=== PATIENT | male | born 1935 | race Caucasian/White ===

== ENCOUNTER → 2018-07-16 | Outpatient (CLI) | payer BC ==
[~2018-07-16] MED LIST: ADVIL; PRIM50; ROSU5
== END | disposition home or self-care (01) ==
LOC: LAB SHORT 12:27 → PLD 12:27
DX: D48.5 Neoplasm of uncertain behavior of skin (principal); D22.71 Melanocytic nevi of right lower limb, including hip
CPT/HCPCS: 88305

== ENCOUNTER → 2018-08-04 | Outpatient (CLI) | payer BC | END | disposition home or self-care (01) | LOC: LAB SHORT 15:49 → PLD 15:49 | DX: C44.319 Basal cell carcinoma of skin of other parts of face (principal) | CPT/HCPCS: 88305 ==

== ENCOUNTER 2021-07-17 09:23 | Day surgery (SDC) | payer BC ==
[~2021-07-17] VITALS: Ht 170.2 cm; Wt 64.6 kg
[2021-07-17] MEDS ORDERED: Prinivil10 MG (09:30)
[2021-07-17] MEDS ORDERED: ASCO500 (09:30)
[2021-07-17] MEDS ORDERED: ATOR10 (09:38)
--- NOTE | 2021-07-17 12:16 | NUR ---
07/17/21 1216 Naomi Thompson RN VISIBLY WATCHING DRIVE AWAY WITH IN THE PASSENGERS SEAT.
== END 2021-07-17 12:02 | disposition home or self-care (01) ==
LOC: ORSCSDS 09:23
PROVIDERS: Internal Medicine Gastroenterology
PROC: 0DBN8ZX Excision of Sigmoid Colon, Via Natural or Artificial Opening Endoscopic, Diagnostic (ICD-10-PCS; principal; 2021-07-17 10:45)
DX: K62.5 Hemorrhage of anus and rectum (principal); D12.5 Benign neoplasm of sigmoid colon; Z86.010 Personal history of colon polyps; K57.30 Diverticulosis of large intestine without perforation or abscess without bleeding; Z87.891 Personal history of nicotine dependence; Z79.899 Other long term (current) drug therapy
CPT/HCPCS: 88305; J2704; J7120

== ENCOUNTER 2021-08-28 08:14 | Day surgery (SDC) | payer BC ==
[~2021-08-28] VITALS: Ht 172.7 cm; Wt 67.3 kg
[~2021-08-28 08:14] MED LIST changes: +ASCO500 PO; +ATOR10; +PRIM250 PO; -PRIM50; +Prinivil10 MG PO
--- NOTE | 2021-08-28 09:09 | NUR ---
Ambulatory in Day Surgery Patient confirms NPO status and agrees with scheduled surgery. Patient States Post-Procedure ride home has been arranged.
--- NOTE | 2021-08-28 11:01 | NUR ---
Discharge instructions reviewed with patient. Patient verbalizes understanding. Copy given to patient to take home. Dressing to procedure site clean, dry, intact with no visible drainage, swelling, erythema or bruising noted. Patient States Post-Procedure ride home has been arranged. Discharged via wheelchair to private car for ride home.
--- NOTE | 2021-08-28 12:12 | NUR ---
NOTIFIED OF BP 200/100 STATES BP IS BACK TO BASELINE AND IS OK WITH DISCHARGE ORDERS FOR PT TO TAKE HOME BP MEDS WHEN HE GETS HOME. PT VERBALIZES UNDERSTANDING
== END 2021-08-28 23:44 | disposition home or self-care (01) ==
LOC: ORSCMMR 08:14 → ORD 11:00 → ORSCMMR 11:00
PROVIDERS: Surgery
PROC: 0YU50JZ Supplement Right Inguinal Region with Synthetic Substitute, Open Approach (ICD-10-PCS; principal; 2021-08-28 09:30)
DX: K40.90 Unilateral inguinal hernia, without obstruction or gangrene, not specified as recurrent (principal); I10 Essential (primary) hypertension; N18.30 Chronic kidney disease, stage 3 unspecified; Z79.899 Other long term (current) drug therapy
CPT/HCPCS: C1781; J0360; J0690; J1100; J2405; J2704; J3010; J7120

== ENCOUNTER 2021-09-04 18:16 | Inpatient (IN) | payer BC ==
[~2021-09-04] VITALS: Ht 175.3 cm; Wt 66.2 kg
[2021-09-04 19:13] LABS: BASOPHILS ABSOLUTE AUTO 0.01 K/mm3 (0.00-0.23); BASOPHILS PERCENT AUTO 0 % (0-2); EOSINOPHILS ABSOLUTE AUTO 0.04 K/mm3 (0.00-0.68); EOSINOPHILS PERCENT AUTO 0 % (0-6); Hematocrit 40.3 % (37.0-53.0); Hemoglobin 13.9 g/dL (13.5-17.5); IMMATURE GRAN ABSOLUTE AUTO 0.09 K/mm3 (0.00-0.10); IMMATURE GRAN PERCENT AUTO 1 % (0-1); LYMPHOCYTES ABSOLUTE AUTO 1.33 K/mm3 (0.84-5.20); LYMPHOCYTES PERCENT AUTO 11 % (21-46); MONOCYTES ABSOLUTE AUTO 1.13 K/mm3 (0.16-1.47); MONOCYTES PERCENT AUTO 9 % (4-13); Mean Corpuscular HGB 31.8 pg (26.0-34.0); Mean Corpuscular HGB Conc 34.5 g/dL (31.5-36.5); Mean Corpuscular Volume 92 fL (80-100); Mean Platelet Volume 12.2 fL (9.1-12.4); NEUTROPHILS ABSOLUTE AUTO 9.75 K/mm3 (1.96-9.15); NEUTROPHILS PERCENT AUTO 79 % (41-73); Platelet Count 143 K/mm3 (150-400); RDW Coefficient Variation 13.3 % (11.7-14.2); RDW Standard Deviation 45.8 fL (35.1-46.3); Red Blood Cell Count 4.37 M/mm3 (4.30-5.90); White Blood Cell Count 12.35 K/mm3 (4.00-11.30)
[2021-09-04 20:10] LABS: Albumin, Blood 2.7 g/dL (3.4-5.0); Albumin/Globulin Ratio 0.7 (0.8-1.8); Bilirubin, Total 0.4 mg/dL (0.1-1.0); Bun/Creatinine Ratio 13.8 (12.0-20.0); Calcium, Blood 9.3 mg/dL (8.5-10.1); Creatinine, Blood 13.5 mg/dL (0.60-1.20); Globulin, Blood 4.1 g/dL (2.2-4.0); Potassium, Blood 5.1 mmol/L (3.5-5.5); Total Protein, Blood 6.8 g/dL (6.4-8.2)
[2021-09-05 05:50] LABS: BASOPHILS ABSOLUTE AUTO 0.01 K/mm3 (0.00-0.23); BASOPHILS PERCENT AUTO 0 % (0-2); EOSINOPHILS ABSOLUTE AUTO 0.05 K/mm3 (0.00-0.68); EOSINOPHILS PERCENT AUTO 1 % (0-6); Hematocrit 40.5 % (37.0-53.0); Hemoglobin 13.9 g/dL (13.5-17.5); IMMATURE GRAN ABSOLUTE AUTO 0.06 K/mm3 (0.00-0.10); IMMATURE GRAN PERCENT AUTO 1 % (0-1); LYMPHOCYTES PERCENT AUTO 12 % (21-46); MONOCYTES ABSOLUTE AUTO 0.92 K/mm3 (0.16-1.47); MONOCYTES PERCENT AUTO 10 % (4-13); Mean Corpuscular HGB 31.5 pg (26.0-34.0); Mean Corpuscular HGB Conc 34.3 g/dL (31.5-36.5); Mean Corpuscular Volume 92 fL (80-100); Mean Platelet Volume 12.1 fL (9.1-12.4); NEUTROPHILS ABSOLUTE AUTO 7.43 K/mm3 (1.96-9.15); NEUTROPHILS PERCENT AUTO 78 % (41-73); Platelet Count 134 K/mm3 (150-400); RDW Coefficient Variation 13.4 % (11.7-14.2); RDW Standard Deviation 45.2 fL (35.1-46.3); Red Blood Cell Count 4.41 M/mm3 (4.30-5.90); White Blood Cell Count 9.57 K/mm3 (4.00-11.30)
--- NOTE | 2021-09-05 05:53 | NUR ---
SHIFT SUMMARY 88 YR M ADMITTED ON 09/04/21FOR ACUTE RENAL FAILURE. PT HAD HERNIA REPAIR SURGERY 8 DAYS AGO AND STATES THAT HE HAS NOT BEEN ABLE TO URINATE SINCE THEN.FRIEDMAN PLACED IN E.D. AND 4100 ML HAVE BEEN COLLECTED FROM THE CATHETER BAG THIS SHIFT. COLOR OF THE URINE IS CRANBERRY RED AND THIS MAY BE DUE TO TRAUMA DURING CATHETER INSERTION. IT SHOULD BE CLOSELY MONITERED. PT IS PLEASANT AND QUIET AND IS A&O.
[2021-09-05 06:44] LABS: Albumin, Blood 2.6 g/dL (3.4-5.0); Albumin/Globulin Ratio 0.7 (0.8-1.8); Bilirubin, Total 0.5 mg/dL (0.1-1.0); Bun/Creatinine Ratio 17.6 (12.0-20.0); Calcium, Blood 9.2 mg/dL (8.5-10.1); Creatinine, Blood 9.04 mg/dL (0.60-1.20); Globulin, Blood 3.8 g/dL (2.2-4.0); Potassium, Blood 4.3 mmol/L (3.5-5.5); Total Protein, Blood 6.4 g/dL (6.4-8.2)
--- NOTE | 2021-09-05 10:08 | NUR ---
Pt. was awake and alert, and lying in bed. Pt. welcomed my visit. 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 Pt. reflected on the events leading to his hospitalization. Normalized Pt. experience. Pt. was unsettled by the inablity to communicate with his son, who had come to care for pts. . Provided a calming presence. Prayed with Pt. Pt. verbalized desire for me to contact his home. I contacted home, and updated pts. son. Son verbalized gratitude for the update, and shared he (son) has a scheduled call with the physician later today.
--- NOTE | 2021-09-05 15:09 | NUR ---
Initial Assessment with [facility] Community Global Marketing Coordinator 1. Who did you speak with? Spoke with patient 2. What is the patient's prior level of functions? Patient lives independently at his residence with Levi. Levi has dementia. Patient has two sons how both live in [facility]. Sons help when needed. Patient is able to complete ADL's with little assistance. His helps when she is able, but sometimes forgets the task. The residence is two story. Patient able to navigate the stairs without concern. 3. Is the patient and/or family able to provide transportation to and from doctor's appointments and hand picker prescriptions? 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 Does patient still drive? Yes 5. POA/PCP/NOK: NOK: [facility] [phone]/PCP Dr. Cedric Cervantes MD 6. ANTICIPATED DISCHARGE NEEDS/GOALS: TBD -Home Health: No preference -Patient self manages medications -[facility] -Patient owns several canes and has a shower chair 7. List barriers to discharge: No barriers on this date 8. Discharge Plan: TBD and follow up with [place] PCP Dr. Cervantes 9. PCP Follow up appointment: Will be scheduled within seven calendar days of discharge. 10. OTHER COMMENTS: Patient served in the [employer], but has not applied for service connected disability. Encouraged patient to apply or VA/ services.
--- NOTE | 2021-09-05 18:34 | NUR ---
Followed up with pt. while he was eating dinner. Gave an update after facilitating his requested call to his son. Pt. verbalized his gratitude and has since been in contact with son who is caring for pts. spouse. Prayed with pt.
--- NOTE | 2021-09-05 19:35 | NUR ---
PT IS A/OX4, PLEASANT AND COOPERATIVE, THE PT APPEARS TO BE BREATHING EASILY AT THIS TIME. THE PT DENIED ANY PAIN , SOB N/V T/O THE DAY. PT HAS ESENTIAL TREMORS AND HAS DIFFICULTY WITH MEALS BECAUSE OF THE UNCONTROLED SHAKING. PT WAS RESTARTED ON HIS PRIMIDONE. CALL LIGHT IN REACH. NO OTHER CHANGES NOTICED THIS SHIFT
--- NOTE | 2021-09-06 06:02 | NUR ---
SHIFT SUMMARY PT IS AN 85 Y/O MALE, ADMITTED FOR ACUTE RENAL FAILURE. HE IS A&O X 4, 1PA TO THE BS. FRIEDMAN IN PLACE, PATENT AND DRAINING YELLOW URINE. NO C/O ACUTE PAIN, NAUSEA OR SOB. VITAL SIGNS STABLE. TELE SHOWED NSR IN THE 90S. NO ACUTE CHANGES IN PT CONDITION NOTED DURING THE NIGHT. WILL CONTINUE TO MONITOR AND TREAT PER EMAR UNTIL HAND OFF TO DAY SHIFT RN.
[2021-09-06 08:52] LABS: BASOPHILS ABSOLUTE AUTO 0.01 K/mm3 (0.00-0.23); BASOPHILS PERCENT AUTO 0 % (0-2); EOSINOPHILS ABSOLUTE AUTO 0.13 K/mm3 (0.00-0.68); EOSINOPHILS PERCENT AUTO 2 % (0-6); Hematocrit 41.8 % (37.0-53.0); IMMATURE GRAN ABSOLUTE AUTO 0.04 K/mm3 (0.00-0.10); IMMATURE GRAN PERCENT AUTO 1 % (0-1); LYMPHOCYTES ABSOLUTE AUTO 2.07 K/mm3 (0.84-5.20); LYMPHOCYTES PERCENT AUTO 28 % (21-46); MONOCYTES ABSOLUTE AUTO 0.61 K/mm3 (0.16-1.47); MONOCYTES PERCENT AUTO 8 % (4-13); Mean Corpuscular HGB 31.7 pg (26.0-34.0); Mean Corpuscular HGB Conc 33.5 g/dL (31.5-36.5); Mean Corpuscular Volume 95 fL (80-100); Mean Platelet Volume 11.7 fL (9.1-12.4); NEUTROPHILS ABSOLUTE AUTO 4.61 K/mm3 (1.96-9.15); NEUTROPHILS PERCENT AUTO 62 % (41-73); Platelet Count 171 K/mm3 (150-400); RDW Coefficient Variation 13.2 % (11.7-14.2); RDW Standard Deviation 46.5 fL (35.1-46.3); Red Blood Cell Count 4.41 M/mm3 (4.30-5.90); White Blood Cell Count 7.47 K/mm3 (4.00-11.30)
[2021-09-06 09:08] LABS: Bun/Creatinine Ratio 34.9 (12.0-20.0); Creatinine, Blood 2.15 mg/dL (0.60-1.20); Potassium, Blood 4.5 mmol/L (3.5-5.5)
--- NOTE | 2021-09-06 10:33 | NUR ---
Pt. was sitting up and alert. Pt. welcomed my visit. Re-established rapport. Pt. was unsettled about the need to have a bowel movement. Listened Empathetically. Engaged in Life Review. While in conversation, Pt. displayed evidence of BM urgency, and verbally requested I find a nurse to assist him. Contacted nurse, and excused myself while Pt. was assisted.
--- NOTE | 2021-09-06 17:00 | NUR ---
PT IS A/OX4, PLEASANT AND COOPERATIVE, THE PT IS UP WITH MINIMAL ASSIST TO THE CHAIR AND THE BATHROOM, THE PT DENIED ANY PAIN SO FAR THIS SHIFT. PT APPEARS TO BE BREATHING EASILY ON RA AT THIS TIME. PT HAS A FRIEDMAN CATHETER IN PLACE, BLADDER TRAINING WAS STARTED TO MAKE READY FOR REMOVAL. PT WAS UP IN THE CHAIR TODAY FOR BREAKFAST. THE PT AMBULATED INTO THE BATHROOM TODAY WITH MINIMAL ASSIST AND HAD A BM. PT WAS ENCOURAGED TO DRINK, PLEANTY OF FLUIDS
--- NOTE | 2021-09-07 04:48 | NUR ---
SHIFT SUMMARY NO ACUTE CHANGES TO PT STATUS. PT HAD A LOW GRADE TEMPERATURE LAST EVENING. HEATER TURNED DOWN AND FEW BLANKETS REMOVED AND TEMPERATURE RETURNED TO NORMAL. FRIEDMAN CLAMPED AND UNCLAMPED IN PREPERATION FOR BLADDER TRAINING FOR CATHETER REMOVAL THIS AM. WILL CLAMP ONE MORE TIME BEFORE END OF SHIFT. PT HAS CALL LIGHT WITHIN REACH. WILL CONTINUE TO MONITOR.
--- NOTE | 2021-09-07 09:45 | NUR ---
FRIEDMAN CATH REMOVED AFTER BLADDER TRAINING. WILL MONITOR FOR VOID.
--- NOTE | 2021-09-07 11:13 | NUR ---
Pt. is alert and sitting up in chair. Pt. welcomes my visit. Pt. reports progress in his health, but is unsettled by the lack of being able to void his fluids. Listened empathetically. Dr. Leigh visited while I was present. Pt. displayed evidence of encouragement. Facilitated a life review. 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 Pt. verbalized not having a bible, I will bring him a large print NT. Prayed with pt. Pt. verbalized gratitude for the spiritual care he has received.
--- NOTE | 2021-09-07 15:50 | NUR ---
T/C TO DR GRIMES, PT HAS BEEN UNABLE TO VOID. ORDERS FOR BLADDER SCANS AND STRAIGHT CATHS RECEIVED.
--- NOTE | 2021-09-07 16:05 | NUR ---
PT STRAIGHT CATH ATTEMPT UNSUCCESSFUL, REQUESTED DILIP OLIVERA ASSISTANCE, 14 Fr COUDE PLACED, VERY PAINFULL FOR PT, URETHRA INFLAMED. T/C TO DR GRIMES, CHANELL TO LEAVE CATH IN PLACE RECEIVED.
--- NOTE | 2021-09-07 17:54 | NUR ---
PT IS A/O X4, PLEASANT AND COOPERATIVE WITH CARE, FRIEDMAN CATH DISCONTINUED THIS MORNING AFTER BLADDER TRAINING. PT WAS UNABLE TO VOID, BLADDER SCAN AND STRAIGHT CATH UNSUCCESSFUL ON FIRST ATTEMPT. 14 Fr COUDE USED 2ND ATTEMPT, SUCCESSFULLY PLACED, URETHRA WAS VERY INFLAMED AND PROCEDURE WAS PAINFUL FOR PT. T/C TO CHANELL BROWN TO LEAVE CATH, URINE DRAINAGE BAG ATTACHED. SBA TO CHAIR AND BR. CALLS FOR ASSISTANCE APPROPRIATELY. ON ACUTE CHANGES NOTED THIS SHIFT, WILL CONTINUE TO MONITOR AND REPORT TO ONCOMING RN.
--- NOTE | 2021-09-08 04:21 | NUR ---
SHIFT SUMMARY NO ACUTE CHANGES TO PT CONDITION. PT CONTINUES TO BE PLEASANT AND COOPERATIVE WITH HIS CARE. PT HAS PATENT FRIEDMAN DRAINING YELLOW URINE. PT SLEEPING THROUGHOUT MOST OF THE NIGHT. CALL LIGHT IS WITHIN HIS REACH AND WILL CONTINUE TO MONITOR.
[2021-09-08 10:17] LABS: BASOPHILS ABSOLUTE AUTO 0.03 K/mm3 (0.00-0.23); BASOPHILS PERCENT AUTO 0 % (0-2); EOSINOPHILS ABSOLUTE AUTO 0.25 K/mm3 (0.00-0.68); EOSINOPHILS PERCENT AUTO 3 % (0-6); Hematocrit 48.7 % (37.0-53.0); IMMATURE GRAN ABSOLUTE AUTO 0.05 K/mm3 (0.00-0.10); IMMATURE GRAN PERCENT AUTO 1 % (0-1); LYMPHOCYTES ABSOLUTE AUTO 2.32 K/mm3 (0.84-5.20); LYMPHOCYTES PERCENT AUTO 23 % (21-46); MONOCYTES ABSOLUTE AUTO 0.69 K/mm3 (0.16-1.47); MONOCYTES PERCENT AUTO 7 % (4-13); Mean Corpuscular HGB 31.9 pg (26.0-34.0); Mean Corpuscular HGB Conc 32.9 g/dL (31.5-36.5); Mean Corpuscular Volume 97 fL (80-100); Mean Platelet Volume 11.6 fL (9.1-12.4); NEUTROPHILS ABSOLUTE AUTO 6.74 K/mm3 (1.96-9.15); NEUTROPHILS PERCENT AUTO 67 % (41-73); Platelet Count 263 K/mm3 (150-400); RDW Coefficient Variation 12.9 % (11.7-14.2); RDW Standard Deviation 46.2 fL (35.1-46.3); Red Blood Cell Count 5.02 M/mm3 (4.30-5.90); White Blood Cell Count 10.08 K/mm3 (4.00-11.30)
--- NOTE | 2021-09-08 10:38 | NUR ---
Pt. was alert and sitting up. Pt. is pleasant, but unsettled about his inability to void. Pt. verbalizes that he understands the doctor's course of treatment. Explore issues of bea and belief, Pt. has a strong and active bea that brings him both comfort and hope. Prayed with pt. Pt. verbalizes gratitude for the spiritual care visit especially in light of institutional visitor limitations during this phase of Covid.
[2021-09-08 10:46] LABS: Bun/Creatinine Ratio 27.4 (12.0-20.0); Calcium, Blood 10.5 mg/dL (8.5-10.1); Creatinine, Blood 1.46 mg/dL (0.60-1.20); Potassium, Blood 4.1 mmol/L (3.5-5.5)
--- NOTE | 2021-09-08 15:58 | NUR ---
Per Dr. Flowers discharge appropriate. Patient does not oppose discharge. Patient discharged home to residence. [facility] Liaison contacted (09/07/21) to initiate Home Health services per discharge orders. Date of discharge: 09/08/2021 Date of admission: 09/04/2021 Provisional diagnosis at time of admission: acute renal failure Final Diagnosis at time of discharge: acute renal failure Transportation provided by: Patient/private vehicle Location: [address] [place] [address] DME Ordered: None Follow-ups needed: [facility] will contact patient to schedule hospital follow-up visit. Reinforced need to attend follow-up visit with telehealth option if needed. Confirmed numbers: Patient [phone] Provider/PCP: Dr. Cedric Cervantes When: WITHIN 1 WEEK Specialty: follow-up with urology in the outpatient setting; He will likely need cystoscopy in the future. Comment: Explained to patient to contact PCP if any questions regarding medication management, social service needs, and if condition worsens go to Urgent Care/ER. No barriers to discharge. Patient has a strong support network.
[2021-09-08] MEDS ORDERED: TAMS.4ER PO (16:07)
== END 2021-09-08 16:28 | disposition home health service (06) | DRG 683 ==
LOC: ER 18:16 → MEDS 23:59 → ENPENDDIS 09-08 13:25 → MEDS 09-08 16:28
PROVIDERS: Internal Medicine; Physician Assistant; ADMIT Internal Medicine
DX: N17.0 Acute kidney failure with tubular necrosis (principal); N13.8 Other obstructive and reflux uropathy; C85.90 Non-Hodgkin lymphoma, unspecified, unspecified site; E87.2 Acidosis; N32.0 Bladder-neck obstruction; I12.9 Hypertensive chronic kidney disease with stage 1 through stage 4 chronic kidney disease, or unspecified chronic kidney disease; N18.30 Chronic kidney disease, stage 3 unspecified; G25.0 Essential tremor; N40.1 Benign prostatic hyperplasia with lower urinary tract symptoms; R33.8 Other retention of urine; N20.0 Calculus of kidney; Z98.890 Other specified postprocedural states
CPT/HCPCS: 36415; 51702; 76770; 80048; 80053; 85025; 86850; 86900; 86901; 93005; 93010; 94760; 99284-25; A9270; J1650

== ENCOUNTER → 2021-09-20 | Outpatient (CLI) | payer BC ==
[~2021-09-20] MED LIST changes: +TAMS.4ER PO
[2021-09-20 14:32] LABS: BASOPHILS ABSOLUTE AUTO 0.03 K/mm3 (0.00-0.23); BASOPHILS PERCENT AUTO 1 % (0-2); EOSINOPHILS ABSOLUTE AUTO 0.11 K/mm3 (0.00-0.68); EOSINOPHILS PERCENT AUTO 2 % (0-6); Hematocrit 38.6 % (37.0-53.0); Hemoglobin 12.7 g/dL (13.5-17.5); IMMATURE GRAN ABSOLUTE AUTO 0.02 K/mm3 (0.00-0.10); IMMATURE GRAN PERCENT AUTO 0 % (0-1); LYMPHOCYTES ABSOLUTE AUTO 1.95 K/mm3 (0.84-5.20); LYMPHOCYTES PERCENT AUTO 32 % (21-46); MONOCYTES ABSOLUTE AUTO 0.66 K/mm3 (0.16-1.47); MONOCYTES PERCENT AUTO 11 % (4-13); Mean Corpuscular HGB 31.1 pg (26.0-34.0); Mean Corpuscular HGB Conc 32.9 g/dL (31.5-36.5); Mean Corpuscular Volume 95 fL (80-100); NEUTROPHILS ABSOLUTE AUTO 3.28 K/mm3 (1.96-9.15); NEUTROPHILS PERCENT AUTO 54 % (41-73); Platelet Count 190 K/mm3 (150-400); RDW Coefficient Variation 12.4 % (11.7-14.2); RDW Standard Deviation 42.8 fL (35.1-46.3); Red Blood Cell Count 4.08 M/mm3 (4.30-5.90); White Blood Cell Count 6.05 K/mm3 (4.00-11.30)
[2021-09-20 14:41] LABS: Bun/Creatinine Ratio 25.2 (12.0-20.0); Calcium, Blood 9.9 mg/dL (8.5-10.1); Creatinine, Blood 1.31 mg/dL (0.60-1.20); Potassium, Blood 5.5 mmol/L (3.5-5.5)
== END ==
LOC: LAB SHORT 14:28 → LAB 14:28
PROVIDERS: Chiropractor
DX: R79.89 Other specified abnormal findings of blood chemistry (principal); R05.9 Cough, unspecified
CPT/HCPCS: 80048; 85025